=== PATIENT | male | born 1990 | race Hispanic/Latino ===

== ENCOUNTER 2021-03-26 12:38 | Emergency (ER) | payer SELFPAY ==
[~2021-03-26] VITALS: Ht 185.4 cm; Wt 78.9 kg
== END 2021-03-26 13:42 | disposition home or self-care (01) ==
LOC: ER 13:40
DX: S39.012A Strain of muscle, fascia and tendon of lower back, initial encounter (principal); X50.0XXA Overexertion from strenuous movement or load, initial encounter; Y99.0 Civilian activity done for income or pay; F17.210 Nicotine dependence, cigarettes, uncomplicated
CPT/HCPCS: 99282

== ENCOUNTER 2024-09-12 17:51 | Inpatient (IN) | payer OTHER ==
[~2024-09-12] VITALS: Ht 182.9 cm; Wt 81.6 kg
[~2024-09-12 17:51] MED LIST: SEVOFLURANE INHAL SOLN 250 ML PEN BTL ONE
[2024-09-12 19:09] VITALS: TEMP 99.3
[2024-09-12] MEDS: IBUPROFEN 400 MG TAB PO ONE (19:22)
[2024-09-12] MEDS: TETANUS/DIPHTHERIA TOX ADULT 0.5 ML SYR IM ONE (19:23)
[2024-09-12] MEDS ORDERED: ONDANSETRON HCL INJ 2MG/ML 2ML 2 MG/ML VIAL IV PRN (22:00)
[2024-09-12] MEDS: SODIUM CHLORIDE 0.9% 1000ML 1,000 ML IV SCH (22:17)
[2024-09-12 22:37] VITALS: PULSE 71; RESP 17
[2024-09-12 22:43] LABS: BASOPHILS # (AUTO) 0.1 (0.0-0.1); BASOPHILS % 0.5 % (0.0-1.0); EOSINOPHILS # (AUTO) 0.1 (0.0-0.4); EOSINOPHILS % 0.8 % (0.0-6.0); HEMATOCRIT 44.4 % (38.2-49.6); HEMOGLOBIN 14.9 g/dL (14.0-18.0); LYMPHOCYTES # (AUTO) 2.6 (1.0-3.2); LYMPHOCYTES % 23.4 % (18.0-39.1); MEAN CORPUSCULAR HEMOGLOBIN 30.7 pg (28-32); MEAN CORPUSCULAR HGB CONC 33.6 g/dL (31-35); MEAN CORPUSCULAR VOLUME 91.4 fL (81-99); MONOCYTES % 9.5 % (4.4-11.3); NEUTROPHILS # (AUTO) 7.1 (2.1-6.9); NEUTROPHILS % 65.3 % (38.7-80.0); PLATELET COUNT 280 x10e3/uL (140-360); RED BLOOD COUNT 4.86 x10e6/uL (4.3-5.7); RED CELL DISTRIBUTION WIDTH 12.9 % (11.7-14.4); WHITE BLOOD COUNT 10.91 x10e3/uL (4.8-10.8)
[2024-09-12 22:48] LABS: INR 0.9; PROTHROMBIN TIME 12.7 seconds (11.9-14.5)
[2024-09-12 22:57] LABS: ALBUMIN 4.3 g/dL (3.5-5.0); ALBUMIN/GLOBULIN RATIO 1.4 (0.8-2.0); ANION GAP 15.6 mmol/L (8-16); BILIRUBIN,TOTAL 0.6 mg/dL (0.2-1.2); CALCIUM 9.2 mg/dL (8.4-10.2); CREATININE, SERUM 1.47 mg/dL (0.72-1.25); POTASSIUM 3.6 mmol/L (3.5-5.1); TOTAL PROTEIN 7.3 g/dL (6.5-8.1)
[2024-09-12 23:11] VITALS: BP 126/80; PULSE 63; RESP 20; TEMP 97.6; O2SAT 100
[2024-09-12 23:30] VITALS: BP 126/80; PULSE 63; RESP 20; TEMP 97.6; O2SAT 100
[2024-09-13] VITALS (8 sets, daily range): BP systolic 113–139; BP diastolic 67–87; PULSE 57–83; RESP 18–20; TEMP 97.4–98.1; O2SAT 98–100
[2024-09-13] MEDS ORDERED: no home medication (03:20)
[2024-09-13] MEDS ORDERED: FENTANYL CITRATE/PF 100MCG/2 ML INJ ONE (12:32)
[2024-09-13] MEDS ORDERED: PROPOFOL IV EMULSION 10 MG/ML 20 ML VIAL ONE (12:32)
[2024-09-13] MEDS ORDERED: GLYCOPYRROLATE INJ 0.2 MG/ML VIAL ONE (12:32)
[2024-09-13] MEDS ORDERED: MIDAZOLAM HCL 2 MG/2 ML VIAL ONE (12:32)
[2024-09-13] MEDS ORDERED: LIDOCAINE HCL 2% LOCAL INJ 5 ML SDV VIAL INJ ONE (12:34)
[2024-09-13] MEDS ORDERED: DOCUSATE SODIUM 100 MG CAP PO PRN (14:45)
[2024-09-13] MEDS: Morphine 4mg INJECTION 4 MG/ML INJ IV PRN (19:50)
[2024-09-13] MEDS ORDERED: NALOXONE HCL INJ 0.4 MG/ML AMP IV PRN (21:00)
[2024-09-13] MEDS: HYDROMORPHONE 1MG/1ML INJ IV PRN (21:13)
[2024-09-14] VITALS (7 sets, daily range): BP systolic 123–128; BP diastolic 73–93; PULSE 72–93; RESP 17–22; TEMP 97.4–98.3; O2SAT 97–100
[2024-09-14] MEDS ORDERED: ACETAMINOPHEN-1 EAC4 PO (14:37)
== END 2024-09-14 19:54 | disposition home or self-care (01) | DRG 514 ==
LOC: ER 19:03 → ERHOLD 21:59 → MED/SURG2 23:08 → OBSVTOIN 09-13 15:35
PROVIDERS: ADMIT Internal Medicine; ATTEND Internal Medicine
PROC: 0PSP04Z Reposition Right Metacarpal with Internal Fixation Device, Open Approach (ICD-10-PCS; 2024-09-13)
PROC: 0PSP04Z Reposition Right Metacarpal with Internal Fixation Device, Open Approach (ICD-10-PCS; principal; 2024-09-13 13:03)
DX: S62.336B Displaced fracture of neck of fifth metacarpal bone, right hand, initial encounter for open fracture (principal); S62.334A Displaced fracture of neck of fourth metacarpal bone, right hand, initial encounter for closed fracture; S61.411A Laceration without foreign body of right hand, initial encounter; W22.8XXA Striking against or struck by other objects, initial encounter; Y99.0 Civilian activity done for income or pay; Y92.89 Other specified places as the place of occurrence of the external cause
CPT/HCPCS: 36415; 71045; 80053; 85025; 85610; 85730; 90471; 90714; 94799; 99284; G0378; J0690; J1171; J2003; J2250; J2270; J2405; J7030; J7050